=== PATIENT | female | born 1975 | race Caucasian/White ===

== ENCOUNTER → 2022-01-12 | Outpatient (REF) | payer OTHER, BC ==
[~2022-01-12] MED LIST: IBUP600T26 PO; MAPA500T17 PO
[2022-01-12 11:51] LABS: PERCENT SATURATION 20.3 % (13.2-45.0)
== END ==
LOC: M LAB REF 10:22
PROVIDERS: ATTEND Nurse Practitioner Adult Health
DX: R74.01 Elevation of levels of liver transaminase levels (principal)

== ENCOUNTER → 2022-01-13 | Outpatient (CLI) | payer BC, OTHER | LOC: M RAD 10:15 | PROVIDERS: ATTEND Nurse Practitioner Adult Health | DX: R74.8 Abnormal levels of other serum enzymes (principal); K76.0 Fatty (change of) liver, not elsewhere classified ==

== ENCOUNTER 2023-02-03 10:50 | Day surgery (SDC) | payer BC, OTHER ==
[~2023-02-03] VITALS: Ht 165.1 cm; Wt 86.1 kg
[~2023-02-03 10:50] MED LIST changes: +FLUO1TAB PO; +LORA-243 PO; +MILI1TAB PO; +NS 1,000 ML IV ONE; +ROSU40TA4 PO
[2023-02-03] MEDS ORDERED: LIDOCAINE 2% 100MG/5ML SDV (FOR ANES.) As Ordered ONE (11:02)
[2023-02-03] MEDS ORDERED: propofoL 200 MG/20 ML VIAL As Ordered ONE ×3 (11:02→12:11)
[2023-02-03 12:28] VITALS: TEMP 97.5
[2023-02-03 12:40] VITALS: BP 116/56; O2SAT 97
== END 2023-02-03 12:50 | disposition home or self-care (01) ==
LOC: M OPP 10:50
PROVIDERS: ATTEND Internal Medicine Gastroenterology
DX: Z12.11 Encounter for screening for malignant neoplasm of colon (principal); Z12.12 Encounter for screening for malignant neoplasm of rectum; K64.0 First degree hemorrhoids; E78.00 Pure hypercholesterolemia, unspecified; Z79.899 Other long term (current) drug therapy; Z87.891 Personal history of nicotine dependence; Z80.1 Family history of malignant neoplasm of trachea, bronchus and lung; Z80.3 Family history of malignant neoplasm of breast